=== PATIENT | female | born 1960 | race Caucasian/White ===

== ENCOUNTER → 2023-08-04 | Outpatient (CLI) | payer SELFPAY ==
--- NOTE | 2023-08-04 08:15 | MRI_ITS ---
STUDY: MRI LEFT HAND REASON FOR EXAM: Female, 63 years old. Left hand polyarthralgia, osteoarthritis, and CMC joint of the thumb. TECHNIQUE: Standardized fat and water weighted pulse sequences were obtained in all 3 orthogonal planes. COMPARISON: None. FINDINGS: Normal flexor tendons, without tear or tenosynovitis. Normal visualized annular xiang system. Normal volar plates. Normal extensor tendons, without tendon tear, subluxation or tenosynovitis. Normal sagittal bands and dorsal expansion (acevedo). There is mild degenerative arthrosis at the first CMC joint with mild lateral subluxation. Normal second through fifth CMC joints. Normal first through fifth MCP joints without degenerative change, synovitis, periarticular inflammation or marginal erosions. Normal interphalangeal joint of the thumb and second through fifth PIP joints without degenerative change, synovitis, periarticular inflammation or marginal erosions. Normal second through fifth DIP joints without degenerative change, synovitis, periarticular inflammation or marginal erosions. Normal marrow within the metacarpals and visualized phalanges without reactive edema, fracture or subluxation. Normal muscle groups of the thenar and hypothenar eminences. Normal lumbricalis and interosseous muscles. There are no soft tissue masses, edema or atrophy. Normal subcutis adipose space. 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 Normal remainder of the joints within the left hand. Electronically Signed: Nghia Magana MD at 15:55 EST ,
--- NOTE | 2023-08-04 09:45 | RAD_ITS ---
INDICATION: NECK PAIN EXAMINATION/TECHNIQUE: X-RAY - XR Spine Cervical 2 or 3 Views COMPARISON: None. FINDINGS: VERTEBRAE: Preserved vertebral body height. No fracture. No spondylolisthesis. Preservation of the normal cervical lordosis. No significant facet arthropathy. DISCS: Disc spaces are maintained. NECK SOFT TISSUES: No prevertebral soft tissue widening. LUNG APICES: Clear. RAD/Cerv Spine 2 or 3 Views IMPRESSION: 1. No evidence of acute fracture or spondylolisthesis. 2. Prevertebral soft tissue planes have normal appearance. Electronically Signed: Shiraz Quigley MD at 0:04 EST ,
== END | disposition home or self-care (01) ==
PROVIDERS: PCP Family Medicine
DX: M47.812 Spondylosis without myelopathy or radiculopathy, cervical region (principal); M25.50 Pain in unspecified joint; M18.12 Unilateral primary osteoarthritis of first carpometacarpal joint, left hand
CPT/HCPCS: 72040; 73218